=== PATIENT | male | born 1975 | race Caucasian/White ===

== ENCOUNTER → 2018-04-18 20:19 | Outpatient (CLI) | payer OTHER, SELFPAY | PROVIDERS: PCP Internal Medicine; Visit Provider Physician Assistant | DX: J02.9 Acute pharyngitis, unspecified (principal) | CPT/HCPCS: 87070 ==

== ENCOUNTER → 2019-08-28 15:18 | Outpatient (CLI) | payer OTHER, SELFPAY ==
--- NOTE | 2019-08-28 15:21 | DI.RAD.S_ITS ---
PROCEDURE: XR THORACIC SPINE 3V INDICATIONS: localized pain over thoracic spine, approx T11/12 region TECHNIQUE: 3 views of the thoracic spine were acquired. COMPARISON: None. FINDINGS: Bones: No fractures or dislocations. No suspicious bony lesions. 12 pairs of ribs are noted, and appear intact where visualized. Soft tissues: No paravertebral stripe thickening. IMPRESSION: No visualized acute fracture or dislocation. However, if clinical concern and/or pain persist, short interval imaging followup in 7-10 days is recommended, as occult injury cannot be definitively excluded. Dictated by: Lety Lopez M.D. on 08/28/2019 at 16:52 Approved by: Lety Lopez M.D. on 08/28/2019 at 16:52
[2019-08-28 17:07] LABS: Add Manual Diff / Slide Review NO; Basophils Absolute Auto 100 /uL (0-100); Basophils Percent Auto 0.8 % (0-2); Eosinophils Absolute Auto 300 /uL (0-450); Eosinophils Percent Auto 4.6 % (2-4); Hematocrit 44.4 % (41-53); Lymphocytes Absolute Auto 2500 /uL (1100-4500); Lymphocytes Percent Auto 34.4 % (25-40); Mean Corpuscular HGB Conc 33.8 % (30-36); Mean Corpuscular Hemoglobin 28.8 PG (26-34); Mean Corpuscular Volume 85.2 fL (80-100); Monocytes Absolute Auto 700 /uL (0-900); Monocytes Percent Auto 9.9 % (3-14); Neutrophils Absolute Auto 3600 /uL (1500-7000); Neutrophils Percent Auto 50.3 % (50-75); Platelet Count 270 X10^3/uL (150-400); Red Blood Cell Count 5.21 X10^6/uL (4.5-5.9); Red Cell Distribution Width 13.2 % (11.6-14.8); White Blood Cell Count 7.1 X10^3/uL (4.5-11.0)
[2019-08-28 17:52] LABS: TSH w/ Reflex to FT4 2.81 uIU/mL (0.47-4.68)
== END ==
PROVIDERS: PCP Family Medicine; Referring Provider Family Medicine; Visit Provider Family Medicine
DX: M54.9 Dorsalgia, unspecified (principal); R53.83 Other fatigue
CPT/HCPCS: 36415; 72072; 84443; 85025

== ENCOUNTER → 2020-02-26 09:07 | Outpatient (CLI) | payer OTHER, SELFPAY ==
--- NOTE | 2020-02-26 09:11 | DI.US.S_ITS ---
LIMITED ULTRASOUND OF LEFT BREAST: 02/26/2020 CLINICAL: Lt breast lump 1100. Comparison is made to exam dated: 02/26/2020 mammogram [facility]. Ultrasound of the left breast 11 o'clock region was performed. There is prominent subcutaneous fat in the area of the palpable abnormality in the left breast that is asymmetric when compared to the contralateral side. No circumscribed fatty mass or soft tissue mass is seen. IMPRESSION: BENIGN Asymmetric subcutaneous fat in the region of the palpable abnormality in the medial left breast may represent a non-circumscribed lipoma or normal variation. Recommend correlation with clinical findings. Chest wall MRI may be obtained for further evaluation if indicated clinically. There is no sonographic evidence of malignancy. This exam was interpreted at Station ID: [id number]. Electronically Signed By: Naman mcpherson/thanh:02/26/2020 12:46:49 letter sent: Clinical Evaluation Ultrasound BI-RADS: 2 Benign
--- NOTE | 2020-02-26 09:11 | DI.MG.S_ITS ---
MALE BILATERAL DIGITAL DIAGNOSTIC MAMMOGRAM 3D/2D: 02/26/2020 CLINICAL: Left breast mass. No prior exams were available for comparison. There is mild bilateral gynecomastia. No significant masses, calcifications, or other findings are seen in either breast. IMPRESSION: INCOMPLETE: NEEDS ADDITIONAL IMAGING EVALUATION There is no abnormality seen in the left breast to correspond with the palpable abnormality in the superior medial quadrant, however, ultrasound is recommended. This exam was interpreted at Station ID: [id number]. NOTE: For mammograms, a report in lay terms will be sent to the patient. Approximately 15% of breast malignancies will not be visualized mammographically. In the management of a palpable breast mass, a negative mammogram must not discourage biopsy of a clinically suspicious lesion. SUMMARY: Targeted ultrasound is recommended for further evaluation and will be scheduled immediately following this exam. Electronically Signed By: Naman mcpherson/thanh:02/26/2020 12:42:41 ACR BI-RADS Category 0: Incomplete [id number]
== END ==
PROVIDERS: PCP Family Medicine; Referring Provider Family Medicine; Visit Provider Family Medicine
DX: R92.8 Other abnormal and inconclusive findings on diagnostic imaging of breast (principal); N62 Hypertrophy of breast; N63.22 Unspecified lump in the left breast, upper inner quadrant
CPT/HCPCS: 76642; 77066; G0279

== ENCOUNTER → 2020-08-27 10:41 | Outpatient (CLI) | payer OTHER, SELFPAY ==
--- NOTE | 2020-10-08 08:42 | PM.CARDMON.1 ---
Head Golf [employer] Report Referral & Results Date Patient Seen: 08/27/20 Requesting provider: Natali Cosme Indication: Palpitations Duration of monitoring (days): 12 Diary information: There were 8 patient triggered events identified. All of these events were associated with sinus rhythm only Data: Minimum heart rate identified was 50 beats per minute at 04:36 on 09/04/2020 Maximum sinus heart rate was 138 beats per minute at 18:49 on 08/31/2020 Maximum overall heart rate was 140 beats per minute at 05:48 on 08/28/2020 during a 6 beat run of SVT Less than 1% of identified beats were ventricular or supraventricular ectopic in origin, which would classify them as rare. No pauses Impression: This study did not identify any etiology for palpitations. Patient events were associated with only sinus rhythm 1 run of very brief SVT was identified.
== END ==
PROVIDERS: PCP Family Medicine; Referring Provider Family Medicine; Visit Provider Family Medicine
DX: R00.2 Palpitations (principal)
CPT/HCPCS: 93246; 93248

== ENCOUNTER → 2021-04-01 09:53 | Outpatient (CLI) | payer OTHER, SELFPAY ==
[2021-04-01 11:29] LABS: Hemoglobin A1C% w Est Avg Glu 8.4 % (4.0-6.0)
[2021-04-01 12:19] LABS: Alanine Aminotransferase 25 IU/L (<50); Albumin 4.7 g/dL (3.5-5.0); Albumin Globulin Ratio 1.7 (1.0-2.8); Alkaline Phosphatase 72 U/L (38-126); Aspartate Aminotransferase 22 IU/L (17-59); BUN Creatinine Ratio 32.9 (6-22); Bilirubin Total 0.4 mg/dL (0.2-1.3); Blood Urea Nitrogen 26 mg/dL (9-20); Calcium 10.2 mg/dL (8.4-10.2); Carbon Dioxide 28 mmol/L (22-32); Chloride 100 mmol/L (98-107); Cholesterol 282 mg/dL (140-199); Estimated Glomerular Filt Rate > 60.0 mL/min (>60); Globulin 2.7 g/dL (1.7-4.1); Glucose 169 mg/dL (70-100); HDL Cholesterol 33 mg/dL (40-60); HEMOLYSIS < 15 (0-50); Potassium 4.6 mmol/L (3.4-5.1); Sodium 137 mmol/L (137-145); Total Protein 7.4 g/dL (6.3-8.2)
[2021-04-01 12:34] LABS: Triglycerides 550 mg/dL (35-150)
[2021-04-01 12:36] LABS: Thyroid Stimulating Hormone 2.55 uIU/mL (0.47-4.68)
[2021-04-01 16:21] LABS: Creatinine Urine Random 144.2 mg/dL
[2021-04-01 16:24] LABS: Microalbumin Urine Random 1.6 mg/dL (0-1.6)
== END ==
PROVIDERS: PCP Family Medicine; Referring Provider Family Medicine; Visit Provider Family Medicine
DX: E10.9 Type 1 diabetes mellitus without complications (principal); R53.83 Other fatigue
CPT/HCPCS: 36415; 80053; 80061; 82043; 82570; 83036; 84443

== ENCOUNTER → 2022-05-03 08:25 | Outpatient (CLI) | payer OTHER, SELFPAY ==
[2022-05-03 10:16] LABS: Alanine Aminotransferase 26 IU/L (<50); Albumin 4.2 g/dL (3.5-5.0); Albumin Globulin Ratio 1.5 (1.0-2.8); Alkaline Phosphatase 62 U/L (38-126); Aspartate Aminotransferase 24 IU/L (17-59); Bilirubin Total 0.4 mg/dL (0.2-1.3); Blood Urea Nitrogen 12 mg/dL (9-20); Calcium 9.1 mg/dL (8.4-10.2); Carbon Dioxide 32 mmol/L (22-32); Chloride 101 mmol/L (98-107); Cholesterol 201 mg/dL (140-199); Estimated Glomerular Filt Rate > 60 mL/min (>60); Globulin 2.8 g/dL (1.7-4.1); Glucose 100 mg/dL (70-100); HDL Cholesterol 32 mg/dL (40-60); HEMOLYSIS < 15 (0-50); LDL Cholesterol Calculated 122 mg/dL (<100); Potassium 3.9 mmol/L (3.4-5.1); Sodium 141 mmol/L (137-145); Triglycerides 236 mg/dL (35-150)
[2022-05-03 10:25] LABS: Hemoglobin A1C% w Est Avg Glu 7.9 % (4.0-6.0)
[2022-05-03 10:28] LABS: Creatinine Urine Random 89.4 mg/dL
[2022-05-03 10:37] LABS: Microalbumin Urine Random < 0.6 mg/dL (0-1.6)
[2022-05-03 11:02] LABS: Vitamin B12 482 pg/mL (239-931)
== END ==
PROVIDERS: PCP Family Medicine; Referring Provider Family Medicine; Visit Provider Family Medicine
DX: E10.9 Type 1 diabetes mellitus without complications (principal); R53.83 Other fatigue
CPT/HCPCS: 36415; 80053; 80061; 82043; 82306; 82570; 82607; 83036; 84443

== ENCOUNTER → 2022-10-28 15:42 | Outpatient (CLI) | payer OTHER, SELFPAY ==
--- NOTE | 2022-10-28 15:45 | DI.RAD.S_ITS ---
PROCEDURE: XR TIBIA FIBULA LT 2V INDICATIONS: mass left distal lateral leg painful bone aches TECHNIQUE: 2 views of the tibia and fibula were acquired. COMPARISON: None. FINDINGS: Bones: No fractures or dislocations. No suspicious bony lesions. Soft tissues: No suspicious soft tissue calcifications . Subtle soft tissue fullness over the lateral aspect of the distal left lower leg. No associated calcifications. No underlying osseous changes. IMPRESSION: Subtle soft tissue fullness involving the lateral aspect of the distal left lower leg without underlying osseous abnormalities. Consider further evaluation with MRI. Dictated by: Luis A Tee M.D. on 10/28/2022 at 16:43 Approved by: Luis A Tee M.D. on 10/28/2022 at 16:44
[2022-10-28 18:04] LABS: Add Manual Diff / Slide Review NO; Basophils Absolute Auto 100 /uL (0-100); Basophils Percent Auto 0.7 % (0-2); Eosinophils Absolute Auto 300 /uL (0-450); Eosinophils Percent Auto 3.2 % (2-4); Hematocrit 43.8 % (41-53); Hemoglobin 14.7 g/dL (13.5-17.5); Lymphocytes Absolute Auto 2600 /uL (1100-4500); Lymphocytes Percent Auto 31.5 % (25-40); Mean Corpuscular HGB Conc 33.5 % (30-36); Mean Corpuscular Hemoglobin 28.4 PG (26-34); Mean Corpuscular Volume 84.6 fL (80-100); Monocytes Absolute Auto 800 /uL (0-900); Monocytes Percent Auto 9.2 % (3-14); Neutrophils Absolute Auto 4600 /uL (1500-7000); Neutrophils Percent Auto 55.4 % (50-75); Platelet Count 283 X10^3/uL (150-400); Red Blood Cell Count 5.18 X10^6/uL (4.5-5.9); Red Cell Distribution Width 13.1 % (11.6-14.8); White Blood Cell Count 8.3 X10^3/uL (4.5-11.0)
== END ==
PROVIDERS: PCP Family Medicine; Referring Provider Physician Assistant; Visit Provider Physician Assistant
DX: M79.606 Pain in leg, unspecified (principal); R22.42 Localized swelling, mass and lump, left lower limb
CPT/HCPCS: 73590; 85025

== ENCOUNTER → 2022-11-11 18:34 | Outpatient (CLI) | payer OTHER, SELFPAY ==
--- NOTE | 2022-11-11 18:36 | DI.MRI.S_ITS ---
PROCEDURE: MR LOWER LEG LT WO/W CON INDICATIONS: leg pain, abnormal xray 10/28/22 TECHNIQUE: Noncontrast coronal T1 spin echo and STIR, sagittal T1 spin echo with fat saturation and STIR, axial T1 spin echo and T2 fast spin echo with fat saturation. After the administration of contrast, axial/sagittal/coronal T1 spin echo with fat saturation through the left lower leg . COMPARISON: [facility], CR, XR TIBIA FIBULA LT 2V, 10/28/2022, 15:51. FINDINGS: Image quality: Excellent. Bones: The visualized bone marrow demonstrates normal signal on all sequences. The overlying cortex appears intact. No abnormal intraosseous enhancement. Soft tissues: No soft tissue masses are visualized. The scanned muscles demonstrate normal overall bulk and internal signal. Subcutaneous tissues appear normal as well. No abnormal soft tissue enhancement. IMPRESSION: 1. No enhancing soft tissue mass or drainable fluid collection is seen in lower leg soft tissue. No area of abnormal intramuscular enhancement. Lower leg tendons are intact. Previous radiograph finding of soft tissue fullness likely represent benign subcutaneous fat. 2. No abnormal intraosseous enhancement. No suspicious intraosseous lesions. No fracture or dislocation. No abnormal tibial stress injury. Dictated by: Alverto Kumari M.D. on 11/12/2022 at 9:16 Approved by: Alverto Kumari M.D. on 11/12/2022 at 9:21
== END ==
PROVIDERS: PCP Family Medicine; Referring Provider Family Medicine; Visit Provider Family Medicine
DX: M79.606 Pain in leg, unspecified (principal); R93.6 Abnormal findings on diagnostic imaging of limbs
CPT/HCPCS: 73720; A9579

== ENCOUNTER → 2023-01-28 09:49 | Outpatient (CLI) | payer OTHER, SELFPAY ==
[2023-01-31 13:25] LABS: Fecal Immunochemical Test Negative (Negative)
== END ==
PROVIDERS: PCP Family Medicine; Referring Provider Family Medicine; Visit Provider Family Medicine
DX: Z12.11 Encounter for screening for malignant neoplasm of colon (principal); E10.9 Type 1 diabetes mellitus without complications
CPT/HCPCS: 82274

== ENCOUNTER → 2023-01-31 11:13 | Outpatient (CLI) | payer OTHER, SELFPAY ==
--- NOTE | 2023-01-31 11:15 | DI.RAD.S_ITS ---
PROCEDURE: XR THORACIC SPINE 3V INDICATIONS: pain TECHNIQUE: 3 views of the thoracic spine were acquired. COMPARISON: [facility], CT, THORAX WITH CONTRAST, 05/28/2010, 15:51. [facility], CR, XR LUMBAR SPINE 2-3V, 01/31/2023, 11:26. [facility], CR, XR THORACIC SPINE 3V, 08/28/2019, 15:25. FINDINGS: Bones: No fractures or dislocations. No suspicious bony lesions. There is a nodular density projecting to the T6 vertebral body on the lateral view. 12 pairs of ribs are noted, and appear intact where visualized. Soft tissues: No paravertebral stripe thickening. IMPRESSION: 1. No acute bony abnormality. 2. A nodular density projecting to T6 vertebral body on the lateral view. This most likely the posterior calcified nodule seen on the chest CT. Dictated by: Everett Selby M.D. on 01/31/2023 at 12:14 Approved by: Everett Selby M.D. on 01/31/2023 at 12:18
--- NOTE | 2023-01-31 11:15 | DI.RAD.S_ITS ---
PROCEDURE: XR LUMBAR SPINE 2-3V INDICATIONS: pain TECHNIQUE: 3 views of the lumbar spine were acquired. COMPARISON: [facility], , XR THORACIC SPINE 3V, 01/31/2023, 11:26. FINDINGS: Bones: 5 [id number] vertebrae are present. There is normal bony alignment. No vertebral body compression fractures. No suspicious bony lesions. Moderate facet arthropathy at L4-L5 and L5-S1. Soft tissues: Overlying bowel gas pattern is normal. No suspicious soft tissue calcifications. IMPRESSION: 1. No acute bony abnormality. 2. Moderate facet arthropathy in lower lumbar spine. Dictated by: Everett Selby M.D. on 01/31/2023 at 11:44 Approved by: Everett Selby M.D. on 01/31/2023 at 12:14
== END ==
PROVIDERS: PCP Family Medicine; Referring Provider Family Medicine; Visit Provider Family Medicine
DX: M47.817 Spondylosis without myelopathy or radiculopathy, lumbosacral region (principal); M47.816 Spondylosis without myelopathy or radiculopathy, lumbar region; M54.9 Dorsalgia, unspecified
CPT/HCPCS: 72072; 72100

== ENCOUNTER → 2023-03-02 10:30 | Outpatient (CLI) | payer OTHER, SELFPAY | PROVIDERS: PCP Family Medicine; Visit Provider Family Medicine | DX: E10.9 Type 1 diabetes mellitus without complications (principal); L02.91 Cutaneous abscess, unspecified | CPT/HCPCS: 87070; 87205 ==

== ENCOUNTER 2023-03-30 18:25 | Emergency (ER) | payer OTHER, SELFPAY ==
[2023-03-30] VITALS (11 sets, daily range): BP systolic 129–147; BP diastolic 74–85; PULSE 67–82; RESP 10–23; TEMP 36.7; O2SAT 95–99; BMI 29.8
--- NOTE | 2023-03-30 19:03 | DI.RAD.S_ITS ---
PROCEDURE: XR CHEST 1V INDICATIONS: chest pain TECHNIQUE: One view of the chest was acquired. COMPARISON: [facility], , CHEST 2 VIEW, 05/28/2010, 11:30. FINDINGS: Surgical changes and devices: None. Lungs and pleura: Lungs are clear. No pleural effusions or pneumothorax. Mediastinum: Mediastinal contours appear normal. Heart size is normal. Bones and chest wall: No suspicious bony lesions. Overlying soft tissues appear unremarkable. IMPRESSION: No acute cardiopulmonary pathology. Dictated by: Alverto Kumari M.D. on 03/30/2023 at 19:32 Approved by: Alverto Kumari M.D. on 03/30/2023 at 19:33
[2023-03-30 19:22] LABS: Add Manual Diff / Slide Review NO; Basophils Absolute Auto 100 /uL (0-100); Basophils Percent Auto 0.9 % (0-2); Eosinophils Absolute Auto 300 /uL (0-450); Eosinophils Percent Auto 3.8 % (2-4); Hematocrit 42.4 % (41-53); Hemoglobin 14.6 g/dL (13.5-17.5); Lymphocytes Absolute Auto 2800 /uL (1100-4500); Lymphocytes Percent Auto 37.2 % (25-40); Mean Corpuscular HGB Conc 34.5 % (30-36); Mean Corpuscular Hemoglobin 29.1 PG (26-34); Mean Corpuscular Volume 84.4 fL (80-100); Monocytes Absolute Auto 700 /uL (0-900); Monocytes Percent Auto 8.9 % (3-14); Neutrophils Absolute Auto 3800 /uL (1500-7000); Neutrophils Percent Auto 49.2 % (50-75); Platelet Count 273 X10^3/uL (150-400); Red Blood Cell Count 5.03 X10^6/uL (4.5-5.9); Red Cell Distribution Width 13.2 % (11.6-14.8); White Blood Cell Count 7.6 X10^3/uL (4.5-11.0)
[2023-03-30 19:28] LABS: INR 0.9 (0.9-1.3); Prothrombin Time 10.6 SECONDS (9.4-12.5)
[2023-03-30 19:31] LABS: PTT Partial Thromboplastin Tim 33 SECONDS (25.1-36.5)
[2023-03-30 19:35] LABS: Alanine Aminotransferase 34 IU/L (<50); Albumin 4.3 g/dL (3.5-5.0); Albumin Globulin Ratio 1.5 (1.0-2.8); Alkaline Phosphatase 63 U/L (38-126); Aspartate Aminotransferase 28 IU/L (17-59); Bilirubin Total 0.4 mg/dL (0.2-1.3); Blood Urea Nitrogen 16 mg/dL (9-20); Calcium 9.4 mg/dL (8.4-10.2); Carbon Dioxide 26 mmol/L (22-32); Chloride 104 mmol/L (98-107); Creatine Kinase 153 U/L (55-170); Estimated Glomerular Filt Rate > 60 mL/min (>60); Globulin 2.9 g/dL (1.7-4.1); Glucose 119 mg/dL (70-100); HEMOLYSIS 19 (0-50); Lipase 44 U/L (23-300); Potassium 3.8 mmol/L (3.4-5.1); Sodium 138 mmol/L (137-145); Total Protein 7.2 g/dL (6.3-8.2)
[2023-03-30 19:46] LABS: Troponin I < 0.012 ng/mL (0.01-0.034)
--- NOTE | 2023-03-30 20:14 | DI.CT.S_ITS ---
PROCEDURE: CT ABDOMEN PELVIS W CON INDICATIONS: LUQ pain TECHNIQUE: After the administration of intravenous contrast, axial sections acquired from the lung bases to the pubic symphysis. Coronal and sagittal reformats were performed. For radiation dose reduction, the following was used: automated exposure control, adjustment of mA and/or kV according to patient size. COMPARISON: None. FINDINGS: Image quality: Diagnostic. Lower Chest: No significant findings. ABDOMEN: Liver: No solid mass. Gallbladder: No radiopaque gallstones or wall thickening. Biliary ducts: No biliary dilation. Pancreas: No ductal dilation. Spleen: Size is within normal limits. Incidental anterior splenule. Adrenal Glands: No adrenal nodules. Kidneys and Ureters: No hydronephrosis. No solid mass. No complex renal cystic lesion which requires follow up. Stomach and Bowel: Normal colonic caliber, without significant wall thickening. Normal caliber appendix in the right lower quadrant. Peritoneum: No abnormal intraperitoneal fluid. No free air. Ventral Wall: No significant ventral hernia. Abdominal Nodes: No retroperitoneal or mesenteric adenopathy by size criteria. Vessels: Aorta and inferior vena cava are normal in size. PELVIS: Pelvic Organs: Unremarkable. Bladder: No bladder wall thickening, accounting for underdistention. Pelvic Nodes: No enlarged lymph nodes. Miscellaneous: No inguinal hernias are seen. Bones: No vertebral body compression fractures. Well-defined sclerotic with focus in the right femoral head, probable bone island. IMPRESSION: No acute process in the abdomen or pelvis. Specifically no evidence of cholecystitis or pancreatitis as clinically queried. Approved by: Griselda Kahn M.D. on 03/30/2023 at 21:02
--- NOTE | 2023-03-30 21:30 | ED_ITS ---
HPI - Chest Pain General Chief Complaint: Chest Pain Stated Complaint: chest pain Time Seen by Provider: 03/30/23 19:22 Source: patient Mode of arrival: Family Vehicle Limitations: no limitations History of Present Illness HPI narrative: 48-year-old gentleman with a history of type 1 diabetes, asthma severe reflux and complete intolerance to PPI and proton pump inhibitors, hyperlipidemia who presents with 2 days of chest pain. Notes over the last month he has been having increasing episodes of chest pain and has been using more Tums. Yesterday began having pain central portion of his chest, substernal/epigastric that began radiating through his back and up into the left shoulder he has been somewhat lightheaded. Initially he presumed this was pleuritic chest pain and was particularly concerned, but as it has progressed and is now radiating through to the back he comes in for further evaluation. He notes no nausea, vomiting or diarrhea, no black stools. He has never had GI bleeding. He has never had acute coronary issues. He does not describe fever, cough, chills. He notes that his blood sugars have been at his baseline Related Data Home Medications Medication Instructions Recorded Confirmed loratadine 10 mg tablet (Claritin) 10 mg PO DAILY 03/06/18 03/04/23 fluticasone propionate 50 2 spray intranasal DAILY 05/10/18 03/04/23 mcg/actuation nasal spray,suspension Previous Rx's Medication Instructions Recorded triamcinolone acetonide 0.5 % 1 applictn topical BID #15 grams 05/10/18 topical cream ONE TOUCH VERIO GLUCOSE METER #1 ea 04/04/19 fluticasone propionate 110 1 puff inhalation BID #12 grams 08/24/19 mcg/actuation HFA aerosol inhaler (Flovent HFA) ciclesonide 80 mcg/actuation 1 puff inhalation BID #18.3 grams 08/29/19 aerosol inhaler ipratropium bromide 17 2 puff inhalation TID #12.9 grams 12/03/20 mcg/actuation HFA aerosol inhaler (Atrovent HFA) diazepam 10 mg tablet (Valium) 10 mg PO DAILY #2 tabs 08/26/20 albuterol sulfate 90 mcg/actuation 2 puff inhalation Q4-6H PRN 09/29/21 aerosol inhaler shortness of breath or wheezing #18 grams insulin lispro 100 unit/mL See Rx Instructions .Route 03/21/23 subcutaneous solution (Humalog .COMPLEX #120 mL U-100 Insulin) pravastatin 80 mg tablet See Rx Instructions .Route 05/04/22 .COMPLEX #90 tabs blood sugar diagnostic (OneTouch #750 ea 07/27/22 Verio test strips) sulfamethoxazole 800 1 tab PO BID #14 tabs 03/02/23 mg-trimethoprim 160 mg tablet (Bactrim DS) sucralfate 1 gram tablet (Carafate) 1 g PO QACHS #120 tabs 03/30/23 Allergies Allergy/AdvReac Type Severity Reaction Status Date / Time No Known Drug Allergies Allergy Verified 03/04/23 14:13 Review of Systems Review of Systems Narrative: Pertinent positive and negative findings as per HPI Patient History Medical History (Updated 03/30/23 @ 23:17 by Abbey Recio MD) Fever Asthma Seasonal allergies GERD (gastroesophageal reflux disease) Diabetes mellitus Social History marital status: number of children: 3 Smoking Status: Never smoker alcohol intake: never substance use type: does not use Smoking Status: Never smoker Exam Initial Vital Signs Initial Vital Signs: Vital Signs Temperature 98.0 F 03/30/23 18:50 Pulse Rate 75 03/30/23 18:50 Respiratory Rate 16 03/30/23 18:50 Blood Pressure 145/85 H 03/30/23 18:50 Pulse Oximetry 99 03/30/23 18:50 Oxygen Delivery Method Room Air 03/30/23 18:50 General: Healthy appearing, not toxic but appears uncomfortable. Able to give a complete and coherent history. Well-nourished well-developed HEENT: Moist mucous membranes, normal sclera with reactive pupils, Neck: No JVD, supple Respiratory: Lungs are clear to auscultation, no wheezing no rales no rhonchi. Full and symmetrical air movement Cardiac: Regular rate and rhythm no murmurs no bruits Abdomen: Soft, nontender, good bowel tones, no flank pain Skin: Warm and dry, no rashes Neurologic: Grossly neurologically intact with no obvious asymmetries or abnormalities Extremities: No trauma, well perfused Psych: Cooperative, appropriate insight and affect Course Orders Ordered: ED Orders 03/30/23 19:00 Complete Blood Count AUTO DIFF Stat Comprehensive Metabolic Panel Stat Lipase Stat Magnesium Stat PTT Partial Thromboplastin Andrzej Stat Prothrombin Time INR Stat Troponin & CK Cardiac Panel Stat 03/30/23 19:03 XR chest 1V Stat EKG-12 Lead Stat 03/30/23 20:14 CT abdomen pelvis w con Stat Discontinued Medications Aspirin (Aspirin 81 Mg Chew Tab) 324 mg PO NOW ONE Stop: 03/30/23 19:04 Last Admin: 03/30/23 21:45 Dose: 324 mg Documented By: TRICE Ketorolac Tromethamine (Ketorolac 30 Mg/Ml Vial) 15 mg IV NOW ONE Stop: 03/30/23 21:39 Last Admin: 03/30/23 21:46 Dose: 15 mg Documented By: TRICE Vital Signs Vital signs: Vital Signs - 8 hr 03/30/23 18:50 03/30/23 19:48 03/30/23 19:49 Temperature 98.0 F Pulse Rate 75 70 68 Respiratory Rate 16 14 10 L Blood Pressure 145/85 H 147/75 H Pulse Oximetry 99 98 97 Oxygen Delivery Method Room Air Room Air 03/30/23 19:49 03/30/23 20:00 03/30/23 20:00 Temperature Pulse Rate 68 Respiratory Rate 14 Blood Pressure 147/75 H 141/79 H Pulse Oximetry 96 Oxygen Delivery Method Room Air 03/30/23 20:34 03/30/23 20:35 03/30/23 21:00 Temperature Pulse Rate 82 76 72 Respiratory Rate 23 17 18 Blood Pressure Pulse Oximetry 99 98 97 Oxygen Delivery Method Room Air Room Air 03/30/23 21:00 03/30/23 21:30 03/30/23 21:30 Temperature Pulse Rate 72 Respiratory Rate 11 L Blood Pressure 137/78 129/74 Pulse Oximetry 95 Oxygen Delivery Method 03/30/23 22:00 03/30/23 22:00 Temperature Pulse Rate 68 Respiratory Rate 17 Blood Pressure 133/76 Pulse Oximetry 96 Oxygen Delivery Method MDM - Chest Pain Lab Data 03/30/23 19:00 03/30/23 19:00 Labs: Lab Results 03/30/23 Range/Units 19:00 WBC 7.6 (4.5-11.0) X10^3/uL RBC 5.03 (4.5-5.9) X10^6/uL Hgb 14.6 (13.5-17.5) g/dL Hct 42.4 (41-53) % MCV 84.4 (80-100) fL MCH 29.1 (26-34) PG MCHC 34.5 (30-36) % RDW 13.2 (11.6-14.8) % Plt Count 273 (150-400) X10^3/uL Neut % (Auto) 49.2 L (50-75) % Lymph % (Auto) 37.2 (25-40) % [place] % (Auto) 8.9 (3-14) % Eos % (Auto) 3.8 (2-4) % Baso % (Auto) 0.9 (0-2) % Neut # (Auto) 3800 (5805-4609) /uL Lymph # (Auto) 2800 (3363-8636) /uL [place] # (Auto) 700 (0-900) /uL Eos # (Auto) 300 (0-450) /uL Baso # (Auto) 100 (0-100) /uL PT 10.6 (9.4-12.5) SECONDS INR 0.9 (0.9-1.3) APTT 33 (25.1-36.5) SECONDS Sodium 138 (137-145) mmol/L Potassium 3.8 (3.4-5.1) mmol/L Chloride 104 (98-107) mmol/L Carbon Dioxide 26 (22-32) mmol/L BUN 16 (9-20) mg/dL Creatinine 0.84 (0.66-1.25) mg/dL Estimated GFR > 60 (>60) mL/min BUN/Creatinine Ratio 19.0 (6-22) Glucose 119 H (70-100) mg/dL Calcium 9.4 (8.4-10.2) mg/dL Magnesium 2.0 (1.6-2.3) mg/dL Total Bilirubin 0.4 (0.2-1.3) mg/dL AST 28 (17-59) IU/L ALT 34 (<50) IU/L Alkaline Phosphatase 63 (38-126) U/L Total Creatine Kinase 153 (55-170) U/L Troponin I < 0.012 (0.01-0.034) ng/mL Total Protein 7.2 (6.3-8.2) g/dL Albumin 4.3 (3.5-5.0) g/dL Globulin 2.9 (1.7-4.1) g/dL Albumin/Globulin Ratio 1.5 (1.0-2.8) Lipase 44 (23-300) U/L MDM Narrative Medical decision making narrative: CC: Two days of chest pain, epigastrium to left-sided now radiating through to the back Complicating co-morbidities: Type 1 diabetes, asthma Data collected from: patient , Medical records reviewed: Primary care note from March 04, 2023 reviewed Differential considered: Reflux, ulcer, acute coronary syndrome, pneumothorax, bacterial infection, pancreatitis, gallbladder disease Exam documented above, pertinent findings include: Patient is tender in the epigastrium with on reproducible pain reported in the left chest worse with deep breathing. Lungs are otherwise clear. He has no lower extremity edema Lab Test results independently reviewed as above. Pertinent findings: CBC is unremarkable Metabolic panel is unremarkable, anion gap is not increased Troponin is undetectable Independently reviewed EKG: EKG shows sinus rhythm at a rate of 72. Normal intervals normal axis no acute ischemic changes Imaging studies independently reviewed: Chest x-ray shows no acute cardiopulmonary disease CT scan of the chest and abdomen done for the epigastric pain shows as read by Radiology shows no acute findings. Specifically no gallbladder disease, no obvious pancreatitis, no evidence of acute surgical abdomen free air or abscess. Treatments: aspirin, Toradol, GI cocktail Discussion: 48-year-old gentleman presents with 2 days of substernal/epigastric pain now getting worse and radiating through to his back and up his chest. He has a type 1 diabetic has not had cardiac issues in the past. He has never had an upper endoscopy but notes he has severe reflux and is completely intolerant to H2 blockers as well as proton pump inhibitors. Workup today is entirely reassuring. There is no evidence of acute coronary syndrome, pneumothorax, pancreatitis, gallbladder disease, free air in his abdomen. The GI cocktail did help somewhat in relieving his pain. I suspect that his symptoms are related to his reflux. Because of his total intolerance to H2 blockers and proton pump inhibitors I am going to give him a prescription for Carafate, encourage him to continue using Tums as needed and if the Maalox seems like it was helpful note that that is also [id number] as well. We will refer him back to his primary care provider and he likely needs gastroenterology referral with an endoscopy to follow. Because he is 48 and does have type 1 diabetes outpatient cardiac stress test for risk stratification would also likely be reasonable follow-up. All of this is reviewed with the patient and his . Questions were answered. He is safe for discharge home Discharge Plan Departure Patient Disposition: Home Clinical Impression: Chronic GERD Chest pain Qualifiers: Chest pain type: other chest pain Qualified Code(s): R07.89 - Other chest pain Instructions: DI for Gastroesophageal Reflux Disease (GERD) Activity Restrictions/Additional Instructions: Thank you for coming in today Fortunately, I did not find any life-threatening explanations for the pain that you are experiencing. Specifically there is no evidence of a heart attack, pancreatitis, acute bleeding from your stomach, gallbladder disease or lower lung pneumonias. I do suspect that much of this pain is from your lower esophagus and stomach from heartburn. Because you do not tolerate either H2 blockers or proton pump inhibitors (the medications we typically use to reduce acid in your stomach) I am going to prescribe you Carafate. This is a medicine that physically coats the stomach to protect it a bit. It is taken 4 times a day. It is also okay to use Tums. You can also use Maalox if that was of benefit to you in the emergency department. Please schedule follow up appointment with your primary care doctor. I think that an outpatient referral to Gastroenterology with an upper endoscopy is going to be the next most appropriate step in your workup. Because you are 48, do have type 1 diabetes and are a man you do have risk factors for cardiac disease. An outpatient cardiac stress test may be an appropriate screening tool for you as well. Please discuss this with your primary care doctor If you find that you are getting worse or develop any new symptoms, please feel free to return to the emergency department for further evaluation. Prescriptions: New sucralfate [Carafate] 1 gram tablet 1 g PO QACHS Qty: 120 0RF No Action loratadine [Claritin] 10 mg tablet 10 mg PO DAILY Flovent HFA 110 mcg/actuation HFA aerosol inhaler 1 puff INHALATION BID Qty: 12 0RF Rx Instructions: administer with spacer sulfamethoxazole-trimethoprim [Bactrim DS] 800-160 mg tablet 1 tab PO BID Qty: 14 0RF Atrovent HFA 17 mcg/actuation HFA aerosol inhaler 2 puff INHALATION TID Qty: 12.9 0RF diazepam [Valium] 10 mg tablet 10 mg PO DAILY Qty: 2 0RF Rx Instructions: take one 1 hour before procedure may repeat if needed (DME) ONE TOUCH VERIO GLUCOSE METER Qty: 1 0RF Rx Instructions: As directed ciclesonide 80 mcg/actuation HFA aerosol inhaler 1 puff INHALATION BID Qty: 18.3 3RF albuterol sulfate 90 mcg/actuation HFA aerosol inhaler 2 puff inhalation Q4-6H PRN (Reason: shortness of breath or wheezing) Qty: 18 3RF pravastatin 80 mg tablet See Rx Instructions .ROUTE .COMPLEX Qty: 90 3RF Dose Instruction: Take 1 tablet (80 mg) by mouth at bedtime Rx Instructions: Take 1 tablet (80 mg) by mouth at bedtime insulin lispro [Humalog U-100 Insulin] 100 unit/mL solution See Rx Instructions .ROUTE .COMPLEX Qty: 120 3RF Dose Instruction: Inject 140 units under the skin daily via INSULIN PUMP Rx Instructions: Inject 140 units under the skin daily via INSULIN PUMP (DME) OneTouch Verio test strips Strip See Rx Instructions .ROUTE .COMPLEX Qty: 750 3RF Dose Instruction: Use to test blood sugar 8 times daily Rx Instructions: Use to test blood sugar 8 times daily fluticasone propionate 50 mcg/actuation spray,suspension 2 spray NASAL DAILY triamcinolone acetonide 0.5 % cream 1 applictn TOP BID Qty: 15 2RF Referrals: Natali Cosme MD [Primary Care Provider] - Stand Alone Forms: Patient Portal/API
[2023-03-30] MEDS: ASPIRIN 81 MG CHEW TAB 324 MG PO (21:45)
[2023-03-30] MEDS: KETOROLAC 30 MG/ML VIAL 15 MG IV (21:46)
[2023-03-30] MEDS: MAG HYDROX/ALUMINUM/SIMETH SUS 20 ML, LIDOCAINE VISCOUS 2% 15 ML PO (23:17)
== END 2023-03-30 23:25 | disposition home or self-care (01) ==
PROVIDERS: Emergency Provider Emergency Medicine; PCP Family Medicine
DX: K21.9 Gastro-esophageal reflux disease without esophagitis (principal); R07.89 Other chest pain; E10.9 Type 1 diabetes mellitus without complications
CPT/HCPCS: 36415; 71045; 74177; 80053; 82550; 83690; 83735; 84484; 85025; 85610; 85730; 93005; 93010; 96374; 99284; 99285; J1885

== ENCOUNTER 2023-05-17 07:45 | Day surgery (SDC) | payer OTHER, SELFPAY ==
--- NOTE | 2023-05-17 | PATH_ITS ---
[facility] Accession Number: [id number] No. of containers..01 Tissue . 01 Material submitted: . colon - ASCENDING POLYP . 01 Diagnosis: ASCENDING COLON, POLYP: Inflammatory polyp. Negative for dysplasia and malignancy. MRV 05/23/2023 1221 Local . 01 Electronically signed: . More Allen MD, Pathologist NPI- [id number] . 01 Gross description: . ASCENDING POLYP: Received in formalin are multiple fragment(s) of abad, soft tissue measuring 0.1 x 0.1 x 0.1 cm to 0.8 x 0.7 x 0.6 cm submitted entirely in 1 cassette(s) /TERI 05/19/2023 1908 Local . 01 Pathologist provided ICD-10: K63.5 . 01 CPT . 895416 Specimen Comment: A courtesy copy of this report has been sent to [phone] Performed at: 01 [facility] [address] [place] [address], [place], [place] [id number] MD Lopez Francois MD Phone: [phone]
[2023-05-17 08:22] VITALS: BP 140/77; PULSE 80; RESP 14; TEMP 36.5; O2SAT 97
--- NOTE | 2023-05-17 08:25 | PM.PREOP ---
Pre-operative Note COVID-19 COVID-19 status: Not tested Interval Note History & Physical reviewed/Exam performed by Physician: Yes Changes to H&P: No ASA Class (for procedural sedation): III
[2023-05-17] MEDS: LACTATED RINGERS 1,000 ML 42 ML IV (08:38)
[2023-05-17 10:02] VITALS: BP 108/71; PULSE 71; RESP 18; TEMP 35.8; O2SAT 96
--- NOTE | 2023-05-17 10:04 | PM.OP.EC ---
Operative Date/Time/Diagnoses Date of procedure: 05/17/23 Time of procedure: 10:04 Pre-op diagnosis: GERD and colon cancer screening Post-op diagnosis: same Procedure & Clinicians Study performed: EGD and colonoscopy Same procedure as scheduled: Yes Surgeon: Jose Ramon Goodwin Procedure Notes Procedure in detail: Surgeon: Jose Ramon Goodwin MD Anesthesia: More Burkett CRNA Procedure in detail: A timeout was performed. A bite blocked was placed and monitors were attached to the patient. The patient was positioned in the left lateral decubitus position. Sedation was administered. Once the patient was sedated the endoscope was inserted through the bite block and passed through the esophagus and stomach and into the duodenum. No abnormalities were found. We then withdrew the scope into the stomach. No abnormalities were seen. The endoscope was retroflexed and no hiatal hernia was seen. The endoscope was straightned and withdrawn into the esophagus. No abnormalities were seen. EGD findings: Normal exam Next we repositioned the patient for a colonoscopy. A digital rectal exam was performed and was normal. The colonoscope was inserted and advanced to the cecum. The appendiceal orifice was identified and photographed. The scope was slowly withdrawn over greater than 6 minutes. There was a roughly 2 cm inflamed polyp in the ascending colon. This was removed with a hot snare. The polyp was divided with a snare to allow it to be suctioned into the trap. There was good hemostasis. The rest of the colon was normal. The scope was retroflexed in the rectum and no other abnormalities were found. Colonoscopy findings: 2 cm inflamed polyp in the ascending colon Total procedural EBL: 5 mL Scope withdrawal time: 22 minutes Sedation minutes: 31 minutes Post-procedure Disposition: PACU
[2023-05-17 10:08] VITALS: BP 99/59; PULSE 79; RESP 11; O2SAT 95
[2023-05-17 10:12] VITALS: BP 116/73; PULSE 70; RESP 13; TEMP 36.6; O2SAT 94
[2023-05-17 10:13] VITALS: BP 98/60; PULSE 72; RESP 14; O2SAT 97
== END 2023-05-17 10:26 | disposition home or self-care (01) ==
PROVIDERS: PCP Family Medicine; Referring Provider Surgery; Visit Provider Surgery
PROC: 0DJ08ZZ Inspection of Upper Intestinal Tract, Via Natural or Artificial Opening Endoscopic (ICD-10-PCS; CPT 43235; principal; 2023-05-17 08:45)
PROC: 0DJD8ZZ Inspection of Lower Intestinal Tract, Via Natural or Artificial Opening Endoscopic (ICD-10-PCS; CPT 45378; 2023-05-17 08:45)
DX: Z12.11 Encounter for screening for malignant neoplasm of colon (principal); K21.9 Gastro-esophageal reflux disease without esophagitis; K51.40 Inflammatory polyps of colon without complications
CPT/HCPCS: 45385; 43235; J2704

== ENCOUNTER → 2023-08-08 07:35 | Outpatient (CLI) | payer OTHER, SELFPAY ==
--- NOTE | 2023-08-09 00:39 | DI.NM.S_ITS ---
DATE OF SERVICE: 08/08/2023 PROCEDURE: Exercise stress test. INDICATIONS: Chest pain. CARDIAC STRESS: The patient underwent exercise stress test under the supervision of an attending staff using standard Martin protocol. The patient walked on Martin protocol for 9 minutes and 16 seconds, achieved maximum heart rate of 158, which was 87% of target heart rate. Resting blood pressure 122/80 and peak blood pressure 172/88 mmHg. Achieved 10.1 METs of workload. RIVER positive 16%. Baseline rhythm was sinus. During stress, some nonspecific ST-T changes without any convincing ischemic changes. No significant arrhythmias. About 1 minute 16 seconds into the exercise, the patient had heaviness and chest pressure along the sternum, which was similar to his symptoms experiencing at home. It got resolved in 3 minutes 15 seconds into the recovery. No significant arrhythmias. CONCLUSION: Exercise stress test did not show any obvious inducible ischemic changes or significant arrhythmias. Mildly diminished exercise tolerance. Normal hemodynamic response. The patient developed chest heaviness in the sternal area around 1 minute 16 seconds into the exercise and resolved around 3 minutes and 15 seconds into the recovery. In view of retrosternal pressure-type chest discomfort during exercise, consider repeating exercise stress test with imaging modality, like exercise stress echo, to improve sensitivity and specificity to rule out coronary artery disease. Jean-Pierre Evans - RENZO/natalya/INDERJIT doc#: [id number]/job#: [id number] dd: 08/08/2023 16:49:00 dt: 08/09/2023 00:13:00 DICTATING /COPIES TO: Kwesi Valadez MD COPIES MNE: BRYAN;
== END ==
LOC: DI 07:35
PROVIDERS: PCP Family Medicine; Referring Provider Family Medicine; Visit Provider Family Medicine
DX: R07.9 Chest pain, unspecified (principal); E10.9 Type 1 diabetes mellitus without complications; R53.83 Other fatigue; Z82.49 Family history of ischemic heart disease and other diseases of the circulatory system
CPT/HCPCS: 93017

== ENCOUNTER → 2023-11-11 12:22 | Outpatient (CLI) | payer OTHER, SELFPAY ==
--- NOTE | 2023-11-11 12:23 | DI.ECHO.S_ITS ---
[facility] : : [id number] : : [place] : : [id number] : : Phone: [phone] Echocardiogram Report + + :Name: JESSICA SEAMAN Study Date: 11/11/2023 Height: 72 in : :Hospital ReadingLocation: Weight: 230 lb : : Gender: Male BSA: 2.3 m2 : :: 1975 Age: 48 yrs BP: 145/91 mmHg: :Reason For Study: CHEST PAIN : :Ordering Physician: PIPO, : :LIBORIO Performed By: Sudeep Collier : :Referring: LIBORIO FOSS : + + Interpretation Summary The left ventricle is normal in size. Left ventricular systolic function appears normal without focal wall motion abnormalities. The ejection fraction is estimated to be 60-65%. The right ventricle is normal in size and function. The right ventricular systolic pressure is estimated to be at least 19 mmHg based on an estimated right atrial pressure of 3 mm Hg. The left atrial size is normal. There is no significant valvular heart disease. The aortic root is normal size. Procedure: A two-dimensional transthoracic echocardiogram with color flow and Doppler was performed. The study quality was technically adequate. There is no prior echocardiogram noted for this patient. The patient was in normal sinus rhythm during the exam. Left Ventricle: The left ventricle is normal in size. There is normal left ventricular wall thickness. There is no ventricular septal defect visualized. Left ventricular systolic function appears normal without focal wall motion abnormalities. The ejection fraction is estimated to be 60-65%. Diastolic parameters suggest probable normal left ventricular diastolic function and normal filling pressures. Right Ventricle: The right ventricle is normal in size and function. Atria: The left atrial size is normal. Right atrial size is normal. There is no Doppler evidence for an atrial septal defect. Mitral Valve: The mitral valve is normal in structure and function. There is no mitral regurgitation noted. Aortic Valve: The aortic valve is trileaflet. The aortic valve opens well. No aortic regurgitation is present. Tricuspid Valve: The tricuspid valve is normal in structure and function. There is mild tricuspid regurgitation. The right ventricular systolic pressure is estimated to be at least 19 mmHg based on an estimated right atrial pressure of 3 mm Hg. Pulmonic Valve: The pulmonic valve is normal in structure and function. There is trace pulmonic regurgitation. There is no significant valvular heart disease. Great Vessels: The aortic root is normal size. The dimensions of the ascending aorta are normal. The pulmonary artery is normal size. The IVC is of normal diameter and collapses greater than 50% with a sniff. This suggests a low right atrial pressure of 3 mm Hg. Pericardium/ Pleura There is no pericardial effusion. There is no pleural effusion. MMode/2D Measurements & Calculations LVIDd: 4.6 cm LVOT diam: 2.0 cm LVIDs: 3.1 cm Ao root diam: 2.9 cm FS: 32.5 % asc Aorta Diam: 2.9 cm EPSS: 0.61 cm Ao Arch Diam (Prox Trans): 1.5 cm IVSd: 0.88 cm LVPWd: 0.82 cm LV plascencia. diameter/BSA (cm/m^2): 2.1 LV sys. diameter/BSA (cm/m^2): 1.4 LA A2 area: 17.5 cm2 RA long axis: 4.4 cm LA A4 area: 17.0 cm2 RA area: 13.4 cm2 LA length (vol): 5.4 cm RA vol: 34.6 ml LA vol: 46.8 ml RA : 15.3 ml/m2 LA vol index: 20.7 ml/m2 IVC diam: 1.1 cm RVD1 (basal): 3.2 cm RVD2 (mid): 2.4 cm TAPSE: 2.0 cm Doppler Measurements & Calculations Ao V2 max: 138.0 cm/sec LVOT Max Elio: 118.7 cm/sec Ao V2 mean: 96.4 cm/sec LV V1 max P.6 mmHg Ao max P.6 mmHg LV V1 VTI: 24.7 cm Ao mean P.1 mmHg CORTES(I,D): 3.0 cm2 Ao V2 VTI: 26.4 cm CORTES(V,D): 2.8 cm2 sev ratio: 0.93 CORTES indexed to BSA (cm^2/m^2): 1.3 MV E max elio: 63.3 cm/sec TR max elio: 199.8 cm/sec MV A max elio: 66.8 cm/sec TR max P.0 mmHg MV E/A: 0.95 PA V2 max: 79.1 cm/sec Med Peak E' Elio: 8.2 cm/sec PA V2 mean: 50.6 cm/sec E/E' med: 7.7 PA mean P.2 mmHg Lat Peak E' Elio: 11.0 cm/sec PA pr(Accel): 37.9 mmHg E/E' lat: 5.8 E/e' average: 6.7 MV dec time: 0.21 sec SV(LVOT): 79.7 ml Reading Physician:02:17 PM
== END ==
PROVIDERS: PCP Family Medicine; Referring Provider Family Medicine; Visit Provider Family Medicine
DX: I07.1 Rheumatic tricuspid insufficiency (principal); R07.89 Other chest pain
CPT/HCPCS: 93306

== ENCOUNTER → 2024-01-31 10:39 | Outpatient (CLI) | payer OTHER, SELFPAY ==
[2024-01-31 11:41] LABS: Influenza A - CEPHEID Flu A NEGATIVE (NEGATIVE); Influenza B - CEPHEID Flu B NEGATIVE (NEGATIVE); Respiratory Syncytial Virus Negative (Negative)
[2024-01-31 11:42] LABS: COVID-19 CEPHEID 4-PLEX PCR POSITIVE (Negative)
== END ==
PROVIDERS: PCP Family Medicine; Visit Provider Physician Assistant
DX: R05.1 Acute cough (principal); J02.9 Acute pharyngitis, unspecified
CPT/HCPCS: 0241U; 87070

== ENCOUNTER 2024-08-13 08:11 | Emergency (ER) | payer OTHER, SELFPAY ==
[2024-08-13 08:29] VITALS: BP 144/83; PULSE 74; RESP 16; TEMP 36.4; O2SAT 96; BMI 31.1
--- NOTE | 2024-08-13 08:36 | DI.US.S_ITS ---
PROCEDURE: US SCROTUM INDICATIONS: left testicular pain x 1 week TECHNIQUE: Real-time scanning was performed of the scrotum and testicles, with image documentation. Color and pulse Doppler interrogation was performed of both testicles. COMPARISON: None. FINDINGS: Right: Testicle is normal in size at 4.7 x 2.5 x 3.6 cm, and homogenous in echotexture. Tiny calcifications are noted scattered in testicular parenchyma. Epididymis is normal in overall size and morphology. No hydrocele or varicoceles. Overlying scrotal skin is normal in thickness. Left: Testicle is normal in size at 5.0 x 2.4 x 3.1 cm, and homogeneous in echotexture. 2-3 tiny calcifications are seen scattered in left testicular parenchyma. Epididymis is normal in overall size . Heterogeneous left testicular echotexture is seen. No hydrocele or varicoceles. Overlying scrotal skin is normal in thickness. Doppler: Color and pulse Doppler demonstrate normal and symmetric arterial flow in both testicles. Slightly increased left epididymal vascularity is noted. IMPRESSION: 1. Finding is concerning for mild left epididymitis. 2. No testicular torsion or solid appearing testicular lesion. No significant hydroceles or varicoceles. Dictated by: Alverto Kumari M.D. on 08/13/2024 at 9:19 Approved by: Alverto Kumari M.D. on 08/13/2024 at 9:21
--- NOTE | 2024-08-13 09:17 | ED.GENADULT ---
HPI - General Adult General Chief complaint: Urogenital-Male Stated complaint: sent from [facility] Testicle pain X 7 days Time Seen by Provider: 08/13/24 08:20 Source: patient Mode of arrival: Ambulatory History of Present Illness HPI narrative: 49-year-old gentleman with type 1 diabetes, asthma, reflux presents with one-week of left testicular pain. No fevers, no discharge, no concerns for STIs and no prior symptoms comes in for further evaluation. Sugars has been appropriate, abdominal pain, nausea, vomiting. No dysuria Related Data Home Medications ?Medication ?Instructions ?Recorded ?Confirmed ciclesonide 80 mcg/actuation 1 puff inhalation BID 05/17/23 08/13/24 aerosol inhaler (Alvesco) insulin glargine-yfgn 100 unit/mL unit SUBCUT 01/31/24 08/13/24 subcutaneous solution rosuvastatin 20 mg tablet 20 mg PO ONCE PM 01/31/24 08/13/24 acetone (urine) test (Ketostix #25 ea 08/13/24 08/13/24 strips) loratadine 10 mg tablet (Claritin) 10 mg PO DAILY 08/13/24 08/13/24 Previous Rx's ?Medication ?Instructions ?Recorded ONE TOUCH VERIO GLUCOSE METER #1 ea 04/04/19 blood sugar diagnostic (OneTouch #750 ea 07/27/22 Verio test strips) fluticasone propionate 110 1 puff inhalation Q12H #12 grams 01/31/24 mcg/actuation HFA aerosol inhaler insulin lispro 100 unit/mL 140 unit (1.4 mL) SUBCUT DAILY 04/06/24 subcutaneous solution (Humalog #120 mL U-100 Insulin) ketoconazole 2 % shampoo 1 applic topical 3XW #120 mL 05/09/24 doxycycline hyclate 100 mg capsule 100 mg PO BID #20 caps 08/13/24 Allergies Allergy/AdvReac Type Severity Reaction Status Date / Time No Known Drug Allergies Allergy Verified 08/13/24 08:30 Review of Systems Review of Systems Narrative: Pertinent positive and negative findings as per HPI Patient History Medical History Fever Asthma Seasonal allergies GERD (gastroesophageal reflux disease) Diabetes mellitus Social History marital status: number of children: 3 alcohol intake: never substance use type: does not use Smoking Status: Never smoker alcohol intake frequency: holidays/special occasions only Exam Initial Vital Signs Initial Vital Signs: Vital Signs Temperature 97.6 F 08/13/24 08:29 Pulse Rate 74 08/13/24 08:29 Respiratory Rate 16 08/13/24 08:29 Blood Pressure 144/83 H 08/13/24 08:29 Pulse Oximetry 96 08/13/24 08:29 Oxygen Delivery Method Room Air 08/13/24 08:29 General: Alert appropriate in no acute distress Respiratory: Able to speak in full sentences, no obvious respiratory distress Skin: No obvious rashes, warm and dry Neurologic: Grossly intact no obvious asymmetries or abnormalities Psych: appropriate insight and affect, cooperative Genitals: Healthy appearing external genitals, no rash, no discharge, left testicle is not particularly tender but the left epididymis feels slightly inflamed and seems to be the source of his pain. Right testicle has no pain in remainder of scrotum is not painful or abnormal to palpation. No inguinal hernias Course Orders Ordered: ED Orders 08/13/24 08:36 US scrotum Stat Vital Signs Vital signs: Vital Signs - 8 hr 08/13/24 08:29 Temperature 97.6 F Pulse Rate 74 Respiratory Rate 16 Blood Pressure 144/83 H Pulse Oximetry 96 Oxygen Delivery Method Room Air Medical Decision Making [facility] Narrative Medical decision making narrative: 49-year-old type 1 diabetic with a week of left testicular pain. Ultrasound suggests probable epididymitis without mass, abscess, other findings that would warrant further workup. Up-to-date recommendations for this gentleman would include ceftriaxone 500 mg IM, doxycycline 100 mg twice a day for 10 days, ice, support to the scrotum and anti-inflammatories. This is reviewed with the patient, ceftriaxone is administered. Patient took 2 aspirin prior to arrival and is having minimal pain. Discussed use of ibuprofen and importance of completing the course of antibiotics and returning if symptoms are not improving he is safe for discharge Discharge Plan Departure Patient Disposition: Home Clinical Impression: Epididymitis, left Instructions: DI for Epididymitis Activity Restrictions/Additional Instructions: Thank you for coming in today. A stone your physical examine your ultrasound there was no evidence for masses, obstructions or infection. It does look like you have a bit of inflammation in your epididymis, this is the small area of tissue that is sits on top of the testicle that holds sperm after it has been made and before it is released. Typically this is an inflammatory process more than anything else. Using 400 mg of ibuprofen (2 gmyf-clm-vszrgep pills) and 1 Tylenol every 6 hours can be very helpful in controlling pain. Titer unaware or a jockstrap to support the scrotum can be helpful with pain control ice may be worth trying. Current recommendations do suggest antibiotic treatment as well. You were given a dose of ceftriaxone in the emergency department and a prescription for doxycycline to continue for 10 days. A prescription was sent to [facility]. If you find that you are getting worse or develop any new symptoms, please feel free to return to the emergency department for further evaluation. Prescriptions: New doxycycline hyclate 100 mg capsule 100 mg PO BID Qty: 20 0RF No Action ketoconazole 2 % shampoo 1 applic topical 3XW Qty: 120 1RF rosuvastatin 20 mg tablet 20 mg PO ONCE PM insulin glargine-yfgn 100 unit/mL solution SUBCUT Patient Comments: [NO ORIGINAL SIG] fluticasone propionate 110 mcg/actuation HFA aerosol inhaler 1 puff inhalation Q12H Qty: 12 0RF (DME) Ketostix Strip See Rx Instructions .ROUTE .MEDSUPPLY Qty: 25 Rx Instructions: As directed loratadine [Claritin] 10 mg tablet 10 mg PO DAILY (DME) ONE TOUCH VERIO GLUCOSE METER Qty: 1 0RF Rx Instructions: As directed (DME) OneTouch Verio test strips Strip See Rx Instructions .ROUTE .COMPLEX Qty: 750 3RF Dose Instruction: Use to test blood sugar 8 times daily Rx Instructions: Use to test blood sugar 8 times daily insulin lispro [Humalog U-100 Insulin] 100 unit/mL solution 140 unit SUBCUT DAILY Qty: 120 3RF Alvesco 80 mcg/actuation HFA aerosol inhaler 1 puff INHALATION BID Referrals: Natali Cosme MD [Primary Care Provider, Family Practice] Stand Alone Forms: Patient Portal/API
[2024-08-13] MEDS: LIDOCAINE 1% (PF) 5 ML 2.1 ML INJ (09:47)
[2024-08-13] MEDS: cefTRIAXone 1,000 MG VIAL 500 MG IM (09:47)
[2024-08-13 09:58] VITALS: BP 148/68; PULSE 68; RESP 16; O2SAT 95
== END 2024-08-13 09:59 | disposition home or self-care (01) ==
PROVIDERS: Emergency Provider Emergency Medicine; PCP Family Medicine
DX: N45.1 Epididymitis (principal)
CPT/HCPCS: 76870; 93975; 96372; 99283; J0696